=== PATIENT | male | born 2000 | race Two or more races ===

== ENCOUNTER 2021-05-17 03:24 | Emergency (ER) | payer BC ==
[2021-05-17] MEDS ORDERED: KETOROLAC TROMETHAMINE 60 MG/2 ML VIAL IM ONE (04:00)
[2021-05-17] MEDS ORDERED: ONDANSETRON HCL 4 MG TABLET PO ONE (04:00)
[2021-05-17] MEDS ORDERED: PB/HYOSCY/ATR/SCOP/LIDO/MAALOX 55 ML BOTTLE PO ONE (04:00)
[2021-05-17 04:53] VITALS: BP 132/74
== END 2021-05-17 04:50 | disposition home or self-care (01) ==
LOC: EMS 03:25
DX: R10.12 Left upper quadrant pain (principal); R10.13 Epigastric pain
CPT/HCPCS: 96372; 99283; J1885; Q0162